=== PATIENT | female | born 1990 | race Two or more races ===

== ENCOUNTER 2017-02-07 19:14 | Emergency (ER) | payer OTHER ==
[~2017-02-07] VITALS: Ht 165.1 cm; Wt 72.6 kg
--- NOTE | 2017-02-07 19:15 | NUR ---
26 YO FEMALE BB RA. PER EMS, FAMILY CALLED 911 FOR AN ALLERGIC REACTION, PT STATES SHE IS HAVING A HARD TIME BREATHING, NOTED FLUSH LOOK ON HER FACE. PT ASSISTED TO ER BED, SKN WARM AND DRY, PT IS SHIVERING. AWAITING ORDERS FROM PROVIDER, WILL CONTINUE TO MONITOR
--- NOTE | 2017-02-07 19:20 | NUR ---
MEDICATED PT ORDERED
--- NOTE | 2017-02-07 20:25 | NUR ---
PT RESTING IN ER BED, NAD NOTED, SKIN WARM AND DRY. PT LOOKS BETTER, SAYS SHE FEELS BETTER
[2017-02-07 20:39] VITALS: BP 118/67
--- NOTE | 2017-02-07 20:41 | NUR ---
Patient discharged to home in stable condition. Written and verbal after care instructions given. Patient verbalizes understanding of instruction.IV removed. Catheter intact and site benign. Pressure and 4x4 applied to site. No bleeding noted. PT ambulatory with a steady gait
== END 2017-02-07 20:40 | disposition home or self-care (01) ==
LOC: ER 19:16
DX: T78.2XXA Anaphylactic shock, unspecified, initial encounter (principal); Y92.89 Other specified places as the place of occurrence of the external cause
CPT/HCPCS: A4606; J1200; J2930; J3490; Z7610

== ENCOUNTER 2021-12-15 03:55 | Emergency (ER) | payer MEDICAID, OTHER ==
[~2021-12-15] VITALS: Ht 165.1 cm; Wt 72.6 kg
--- NOTE | 2021-12-15 04:30 | NUR ---
BIBFAMILY. LOWER ABD PAIN X 3 HRS. + NAUSEA AND SOB. PT AWAKE AND ALERT X4 BREATHING EVEN AND UNLABORED. PLACED ON MONITOR AND V/S WNL.
--- NOTE | 2021-12-15 04:50 | NUR ---
URINE COLLECTED AND SENT TO LAB
[2021-12-15] MEDS ORDERED: predniSONE 20 MG TABLET ONE (04:51)
[2021-12-15] MEDS ORDERED: ALBUTEROL FS 2.5 MG/3 ML VIAL.NEB ONE (04:53)
[2021-12-15] MEDS ORDERED: IPRATROPIUM NEB FS 0.5 MG/2.5 ML AMPUL.NEB ONE (04:53)
--- NOTE | 2021-12-15 04:55 | NUR ---
RT AT BEDSIDE FOR BREATHING TX
[2021-12-15] MEDS ORDERED: ALBUTEROL FS 2.5 MG/3 ML VIAL.NEB NEB ONE (05:00)
[2021-12-15] MEDS ORDERED: predniSONE 20 MG TABLET PO ONE (05:00)
[2021-12-15] MEDS ORDERED: IPRATROPIUM NEB FS 0.5 MG/2.5 ML AMPUL.NEB NEB ONE (05:00)
[2021-12-15 05:05] LABS: BILIRUBIN,URINE NEGATIVE (NEGATIVE); COLOR,URINE YELLOW (YELLOW); LEUKOCYTE ESTERASE ,URINE SMALL (NEGATIVE); NITRITE, URINE NEGATIVE (NEGATIVE); PROTEIN,URINE NEGATIVE (NEGATIVE); UGLUCOSE NEGATIVE (NEGATIVE); UROBILINOGEN,URINE 0.2 EU/dL (0.2)
[2021-12-15 05:22] LABS: BASOPHILS % (AUTO) 0.2 % (0.0-2.0); EOSINOPHILS % (AUTO) 0.2 % (0.0-6.0); HEMATOCRIT 39 % (33-45); HEMOGLOBIN 13.2 g/dL (11.5-14.8); LYMPHOCYTES # (AUTO) 1.1 K/uL (0.8-4.8); LYMPHOCYTES % (AUTO) 5.7 % (20.0-44.0); MEAN CORPUSCULAR HGB CONC 34 g/dl (31.0-36.0); MEAN CORPUSCULAR VOLUME 85 fL (82-100); MONOCYTES # (AUTO) 0.8 K/uL (0.1-1.30); MONOCYTES % (AUTO) 4.2 % (2.0-12.0); NEUTROPHILS # (AUTO) 17.7 K/uL (1.8-8.9); NEUTROPHILS % (AUTO) 89.7 % (43.0-81.0); PLATELET COUNT (AUTO) 260 K/uL (150-450); RED BLOOD CELL COUNT(AUTO) 4.58 MIL/uL (4.0-5.2); WHITE BLOOD COUNT (AUTO) 19.7 K/uL (4.3-11.0)
[2021-12-15 05:44] LABS: CALCIUM, SERUM 8.4 mg/dL (8.5-10.1); CREATININE 1.2 mg/dL (0.6-1.3); POTASSIUM 3.9 mmol/L (3.5-5.1)
[2021-12-15 05:45] LABS: BACTERIA,URINE Moderate /HPF (None Seen); SQUAMOUS EPITHELIAL CELL,UR Moderate /HPF (None Seen)
[2021-12-15 05:49] LABS: ALBUMIN 3.7 g/dL (3.4-5.0); BILIRUBIN,DIRECT 0.1 mg/dL (0.0-0.2); BILIRUBIN,TOTAL 0.3 mg/dL (0.2-1.0); TOTAL PROTEIN, SERUM 7.1 g/dL (6.4-8.2)
[2021-12-15] MEDS ORDERED: CEFTRIAXONE 1GM BAG (ER ONLY) 50 ML IV ONE (06:00)
[2021-12-15] MEDS ORDERED: CEFTRIAXONE 1 G VIAL ONE (06:27)
[2021-12-15] MEDS ORDERED: LIDOCAINE 1% INJ 50 ML MDV IJ ONE (06:28)
[2021-12-15] MEDS ORDERED: CEFTRIAXONE 1 G VIAL IM ONE (06:30)
[2021-12-15] MEDS ORDERED: KETOROLAC TROMETHAMINE INJ 60 MG/2 ML VIAL IM ONE (07:30)
[2021-12-15] MEDS ORDERED: KETOROLAC TROMETHAMINE 15 MG/ML VIAL ONE (07:35)
--- NOTE | 2021-12-15 08:40 | NUR ---
ULTRASOUND AT BEDSIDE
[2021-12-15] MEDS ORDERED: CEPH500C2 PO (09:34)
[2021-12-15] MEDS ORDERED: IBUP-1955 PO (09:34)
[2021-12-15] MEDS ORDERED: TRAM50TA2 PO (09:34)
[2021-12-15 09:59] VITALS: BP 116/75
== END 2021-12-15 10:00 | disposition home or self-care (01) ==
LOC: ER 03:59
DX: N39.0 Urinary tract infection, site not specified (principal); R06.02 Shortness of breath; J45.909 Unspecified asthma, uncomplicated; F39 Unspecified mood [affective] disorder
CPT/HCPCS: 99285; 74176; 76856; 71045; 96372 ×2; 93005; 85025; 80048; 87086; 83605; 83690; 80076; 84703; 81001; 36415; J3490; J7512; J0696; J1885